=== PATIENT | female | born 1935 | race Caucasian/White ===

== ENCOUNTER 2016-12-24 07:54 | Day surgery (SDC) | payer MEDICARE, OTHER ==
[~2016-12-24 07:54] MED LIST: ADVIL PO; ALEVE220 MG PO; AMB5 PO; DIOVAN HCT160 MG/25 PO; LOP25 PO; NORCO1 TA1 PO; VALSARTAN/HCTZ PO; VOLTAREN1 % TOP; ZANTAC150 MG PO
[2017-02-03] MEDS ORDERED: MULTI-VIT HP PO (13:41)
[2017-02-03] MEDS ORDERED: FISH-EPA1000 MG PO (13:41)
[2017-02-26] MEDS ORDERED: METPAKSF PO (13:44)
== END 2016-12-24 23:59 | disposition home or self-care (01) ==
LOC: SDC 07:54
PROVIDERS: Orthopaedic Surgery
PROC: 3E0S3BZ Introduction of Anesthetic Agent into Epidural Space, Percutaneous Approach (ICD-10-PCS; 2016-12-24)
PROC: 3E0S33Z Introduction of Anti-inflammatory into Epidural Space, Percutaneous Approach (ICD-10-PCS; principal; 2016-12-24 08:15)
DX: M54.16 Radiculopathy, lumbar region (principal); I10 Essential (primary) hypertension; M19.90 Unspecified osteoarthritis, unspecified site; K21.9 Gastro-esophageal reflux disease without esophagitis; K44.9 Diaphragmatic hernia without obstruction or gangrene; Z88.0 Allergy status to penicillin; Z88.5 Allergy status to narcotic agent; Z88.8 Allergy status to other drugs, medicaments and biological substances; Z79.891 Long term (current) use of opiate analgesic; Z79.899 Other long term (current) drug therapy; Z90.710 Acquired absence of both cervix and uterus; Z98.41 Cataract extraction status, right eye; Z98.42 Cataract extraction status, left eye; Z85.3 Personal history of malignant neoplasm of breast; Z96.651 Presence of right artificial knee joint; Z98.890 Other specified postprocedural states
CPT/HCPCS: J1040; J2250; J3010; Q9967

== ENCOUNTER 2017-02-06 04:57 | Day surgery (SDC) | payer MEDICARE, OTHER ==
[~2017-02-06 04:57] MED LIST changes: +FISH-EPA1000 MG PO; +MULTI-VIT HP PO
[2017-02-26] MEDS ORDERED: METPAKSF PO (13:44)
== END 2017-02-06 07:35 | disposition home or self-care (01) ==
LOC: SDC 04:57
PROVIDERS: Orthopaedic Surgery
PROC: 3E0R3BZ Introduction of Anesthetic Agent into Spinal Canal, Percutaneous Approach (ICD-10-PCS; 2017-02-06)
PROC: B01BYZZ Fluoroscopy of Spinal Cord using Other Contrast (ICD-10-PCS; 2017-02-06)
PROC: 3E0R33Z Introduction of Anti-inflammatory into Spinal Canal, Percutaneous Approach (ICD-10-PCS; principal; 2017-02-06 07:30)
DX: M54.16 Radiculopathy, lumbar region (principal); I10 Essential (primary) hypertension; M19.90 Unspecified osteoarthritis, unspecified site; Z88.0 Allergy status to penicillin; Z88.5 Allergy status to narcotic agent; Z88.8 Allergy status to other drugs, medicaments and biological substances; Z90.710 Acquired absence of both cervix and uterus
CPT/HCPCS: J1040; J2250; J3010; Q9967

== ENCOUNTER 2017-03-04 04:33 | Day surgery (SDC) | payer MEDICARE, OTHER ==
[2017-03-03 08:41] LABS: HEMATOCRIT 39.7 % (36.0-48.0); HEMOGLOBIN 13.4 g/dL (12.0-16.0)
[2017-03-03 09:18] LABS: BUN (BLOOD UREA NITROGEN) 19 MG/DL (6-23); CALCIUM, SERUM 9.5 MG/DL (8.5-10.4); CHLORIDE, SERUM 108 MMOL/L (96-112); CO2 (CARBON DIOXIDE) 32 MMOL/L (24-34); CREATININE 0.79 MG/DL (0.55-1.02); GFR AFRICAN AMERICAN 81 ML/MIN (>=60); GFR NON AFRICAN AMERICAN 70 ML/MIN (>=60); GLUCOSE, SERUM 85 MG/DL (60-99); POTASSIUM, SERUM 3.9 MMOL/L (3.5-5.3); SODIUM, SERUM 145 MMOL/L (135-148)
--- NOTE | ~2017-03-04 | OP ---
Record Of Operation [facility] [address] [place]. [address] NAME: KARTHIK MONTOYA : 35 STATUS : [facility]#: [id number] AGE: 81 ADM/REG DATE : 03/04/17 MR#: [id number] REPORT SERV DATE: 03/05/17 DICTATED BY: CHINA ALCOCER II DATE: 03/05/17 REPORT STATUS : Draft TRANSCRIBED BY: RENZO DATE: 03/05/17 DATE OF PROCEDURE: 03/04/2017 PREOPERATIVE DIAGNOSES: 1. Left and right lower extremity radiculopathy secondary to lumbar stenosis. 2. Mild L4-5 spondylolisthesis without instability. POSTOPERATIVE DIAGNOSES: 1. Left and right lower extremity radiculopathy secondary to lumbar stenosis. 2. Mild L4-5 spondylolisthesis without instability. PROCEDURES: 1. Lumbar laminectomy, L4-5, L5-S1. 2. Use of the microscope and stereotactic spinal imaging. SURGEON: China Alcocer M.D. FLUIDS: 1400 mL LR. ESTIMATED BLOOD LOSS: 15 mL. DRAINS: None. COMPLICATIONS: None. ANTIBIOTIC: Preoperatively. PREOPERATIVE HISTORY: This is a very friendly 81-year-old female, well known to me. She is extremely active. I have treated her for some time. 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 She is exceptional in several meetings at the work. She has always been very appropriate and pleasant and without significant back pain. We discussed the pros and cons of surgery and she wished to proceed. DESCRIPTION OF PROCEDURE: After informed consent was obtained, the patient was brought to the operating room at her request and general anesthesia achieved. She was placed in the prone position and the back was prepped and draped in a sterile fashion. The stereotactic spinal pin was then placed into the iliac crest on the less affected side. The minimally invasive quadrant retractor was placed on the left. The microscope was now brought into place and under microscopic visualization, the laminectomy was initiated with the high-speed bur and the [place] rongeurs and the curettes. The central laminectomy was completed by taking down the spinal laminar junction. At this point, at L4-5, the significant stenosis was alleviated with removal of the ligamentum flavum and portions of each facet on the left. The area was now found to be well decompressed following removal of the ligamentum flavum and a portion of the facet. At this point, the L5 nerve root was found to be well decompressed in the lateral recesses. Record Of Operation [facility] [place]. [address] NAME: KARTHIK MONTOYA : 35 STATUS : [facility] PAT#: [id number] AGE: 81 ADM/REG DATE : 03/04/17 MR#: [id number] REPORT SERV DATE: 03/05/17 DICTATED BY: CHINA ALCOCER II DATE: 03/05/17 REPORT STATUS : Draft TRANSCRIBED BY: MODL DATE: 03/05/17 The L4 nerve roots in the foraminal zone did not exhibit significant stenosis. At this point, we worked down to the L5-S1 level where upon the laminectomy was performed with the high-speed bur and the [place] rongeurs. The S1 nerve root was found to be moderately compressed. The decompression was completed. The area was irrigated followed by confirmation of hemostasis and standard closure performed. The patient was then extubated and transferred to PACU in stable condition. I discussed this with her son and answered all of his questions appropriately. MARGARET/RENZO China Alcocer II, M.D. / [id number] CC: Ruel Vargas II
[~2017-03-04 04:33] MED LIST changes: +METPAKSF PO
== END 2017-03-04 22:06 | disposition home or self-care (01) ==
LOC: SDC 04:33
PROVIDERS: Orthopaedic Surgery
PROC: 01NB0ZZ Release Lumbar Nerve, Open Approach (ICD-10-PCS; principal; 2017-03-04 05:45)
DX: M48.07 Spinal stenosis, lumbosacral region (principal); M54.17 Radiculopathy, lumbosacral region; M43.16 Spondylolisthesis, lumbar region; M19.90 Unspecified osteoarthritis, unspecified site; K44.9 Diaphragmatic hernia without obstruction or gangrene; I10 Essential (primary) hypertension; Z88.0 Allergy status to penicillin; Z88.5 Allergy status to narcotic agent; Z88.8 Allergy status to other drugs, medicaments and biological substances; Z90.710 Acquired absence of both cervix and uterus; K21.9 Gastro-esophageal reflux disease without esophagitis; Z79.891 Long term (current) use of opiate analgesic; Z79.899 Other long term (current) drug therapy; Z98.41 Cataract extraction status, right eye; Z98.42 Cataract extraction status, left eye; Z96.651 Presence of right artificial knee joint; Z98.890 Other specified postprocedural states
CPT/HCPCS: 80048; 85014; 85018; 88304; 88311; 93005; J0690; J1030; J2270; J2405; J2710; J3010